=== PATIENT | male | born 1955 ===

== ENCOUNTER 2019-11-20 21:27 | Outpatient (REF) | payer SELFPAY ==
[2019-11-20 16:14] LABS: Bilirubin Negative (Negative); Blood Negative (Negative); Clarity Clear (Clear); Glucose Negative (Negative); Ketones Negative (Negative); Leukocyte Esterase Negative (Negative); Nitrite Negative (Negative); Urobilinogen 0.2 EU/dL (Up TO 0.2)
== END 2019-11-20 21:47 ==
LOC: LBN 21:27
PROVIDERS: Visit Provider Radiology Radiation Oncology
DX: C61 Malignant neoplasm of prostate (principal)
CPT/HCPCS: 81003